=== PATIENT | female | born 1935 | race Caucasian/White ===

== ENCOUNTER 2017-04-25 09:11 | Emergency (ER) | payer BC ==
[~2017-04-25] VITALS: Ht 165.1 cm; Wt 72.6 kg
[2017-04-25 09:22] VITALS: BP 127/72
== END 2017-04-25 11:39 | disposition home or self-care (01) ==
LOC: ED 09:11
DX: M75.91 Shoulder lesion, unspecified, right shoulder (principal)
CPT/HCPCS: Q0092